=== PATIENT | male | born 1970 | race Caucasian/White ===

== ENCOUNTER 2020-03-06 09:14 | Emergency (ER) | payer OTHER ==
[~2020-03-06 09:14] MED LIST: ALDACTONE25 M1 PO; APRESOLINE100 MG PO; ASPIRIN EC81 MG PO; AUGMENTIN 500-1 EACH PO; AUGMENTIN875 MG PO; BACTRIM DS TAB1 EACH PO; BUMEX1 MG PO; CITALOPRAM 40MG40 MG PO; COREG25 MG PO; DAILY VITAMIN1 EACH PO; DRISDOL50000 UNIT PO; HYDRALAZINE25 MG PO; IMDUR 30MG TABL30 MG PO; ISOSORBIDE DINI30 MG PO; LEVEMIR DO100 UNITS/ SC; LEXAPRO 10MG TA10 MG PO; LIPITOR40 MG PO; LIPITOR80 MG PO; LISINOPRIL 20MG20 MG PO; LOPRESSOR25 MG PO; LOPRESSOR50 MG PO; NEURONTIN300 MG PO; NORCO 5-325 TA1 EACH PO; NORVASC 10MG TA10 MG PO; NORVASC5 MG PO; NOVOLOG DO100 UNIT/M SC; NOVOLOG100 UNIT/1 SC; PLAVIX75 MG PO; ROCEPHIN2 GM IV; SINEQUAN10 MG PO; ULTRAM50 MG PO; VIBRAMYCIN100 MG PO; VITAMIN B-121000 MCG PO; VITAMIN C500 M1 PO
[2020-03-06 10:49] LABS: BASOPHIL 1.3 % (0-2); EOSINOPHIL 1.8 % (0-5); HCT 33.3 % (42.0-52.0); HGB 10.9 g/dl (13.2-18.0); LYMPHOCYTE 16.8 % (15-48); MCH 32.3 pg (25.0-31.0); MCHC 32.7 g/dL (32.0-36.0); MCV 98.8 fL (78.0-100.0); MONOCYTE 7.1 % (0-12); MPV 8.9 fL (6.0-9.5); NRBC 0; PLT 276 K/uL (150-400); RBC 3.37 M/uL (4.70-6.00); WBC 7.2 K/uL (4.0-10.5)
[2020-03-06 11:16] LABS: BUN/CREAT RATIO (CALC) 3.8 RATIO; CREATININE 5.46 mg/dL (0.67-1.17); POTASSIUM 3.9 mmol/L (3.5-5.1)
[2020-03-06] MEDS ORDERED: FIORICET1 EACH PO (12:11)
== END 2020-03-06 12:20 | disposition home or self-care (01) ==
LOC: FER 09:14
PROVIDERS: Emergency Medicine
DX: R51.9 Headache, unspecified (principal); I12.0 Hypertensive chronic kidney disease with stage 5 chronic kidney disease or end stage renal disease; N18.6 End stage renal disease; Z99.2 Dependence on renal dialysis; Z95.1 Presence of aortocoronary bypass graft; Z89.612 Acquired absence of left leg above knee; Z89.611 Acquired absence of right leg above knee
CPT/HCPCS: 36415; 70450; 80048; 85025

== ENCOUNTER 2021-03-30 09:59 | Emergency (ER) | payer OTHER ==
[~2021-03-30 09:59] MED LIST changes: +FIORICET1 EACH PO; +HUMALOG 75100 UNIT/M SC; +ISOSORBIDE MONO30 MG PO; +LASIX80 MG PO; +PRINIVIL20 MG PO; +RENAGEL800 MG PO; +ZETIA10 MG PO
[2021-03-30 15:34] LABS: HGB 10.4 g/dl (13.2-18.0); LYMPHOCYTE 17.3 % (15-48); MCH 30.2 pg (25.0-31.0); MCHC 32.5 g/dL (32.0-36.0); NRBC 0; PLT 243 K/uL (150-400); RBC 3.44 M/uL (4.70-6.00); RDW 14.6 % (11.5-14.0); WBC 5.7 K/uL (4.0-10.5)
[2021-03-30 15:44] LABS: INR 1.17 (0.9-1.2); PROTHROMBIN TIME 14.3 SECONDS (11.8-13.4); PTT 29.7 SECONDS (24.4-34.7)
[2021-03-30 15:58] LABS: BUN/CREAT RATIO (CALC) 4.9 RATIO; CREATININE 4.08 mg/dL (0.67-1.17); POTASSIUM 4.1 mmol/L (3.5-5.1)
[2021-03-30 18:02] LABS: CORONAVIRUS 2019 SARS-COV-2 NEGATIVE (NEGATIVE); INFLUENZA A NAA NEGATIVE (NEGATIVE)
[2021-03-30] MEDS ORDERED: NEURONTIN100 M1 PO (19:18)
== END 2021-03-30 19:58 | disposition home or self-care (01) ==
LOC: FER 09:59
PROVIDERS: Nurse Practitioner Family
DX: R07.89 Other chest pain (principal); M54.12 Radiculopathy, cervical region; I25.2 Old myocardial infarction; I12.0 Hypertensive chronic kidney disease with stage 5 chronic kidney disease or end stage renal disease; E11.22 Type 2 diabetes mellitus with diabetic chronic kidney disease; N18.6 End stage renal disease; Z99.2 Dependence on renal dialysis; Z20.822 Contact with and (suspected) exposure to COVID-19
CPT/HCPCS: 36415; 71046; 73030; 80048; 84484; 85025; 85610; 85730; 93005; J1170; J2405; J3490; U0002

== ENCOUNTER 2021-08-18 11:04 | Emergency (ER) | payer OTHER ==
[~2021-08-18 11:04] MED LIST changes: +NEURONTIN100 M1 PO
[2021-08-18 12:46] LABS: BASOPHIL 1.3 % (0-2); HCT 39.8 % (42.0-52.0); HGB 12.9 g/dl (13.2-18.0); MCH 29.2 pg (25.0-31.0); MCHC 32.4 g/dL (32.0-36.0); MPV 9.7 fL (6.0-9.5); NEUTROPHIL 57.7 % (41-80); NRBC 0; PLT 230 K/uL (150-400); RBC 4.42 M/uL (4.70-6.00); WBC 6.1 K/uL (4.0-10.5)
[2021-08-18 13:18] LABS: ALBUMIN 3.7 g/dL (3.4-5.0); BILIRUBIN - TOTAL 0.3 mg/dL (0.2-1.0); BUN/CREAT RATIO (CALC) 7.3 RATIO; CREATININE 5.91 mg/dL (0.67-1.17); FT4 (FREE T4) 0.8 ng/dL (0.76-1.46); GLOBULIN (CALCULATION) 3.9 g/dL; MAGNESIUM 2.1 mg/dL (1.8-2.4); POTASSIUM 5.3 mmol/L (3.5-5.1); TOTAL PROTEIN 7.6 g/dL (6.4-8.2)
[2021-08-18 13:44] LABS: CORONAVIRUS 2019 SARS-COV-2 NEGATIVE (NEGATIVE); INFLUENZA A NAA NEGATIVE (NEGATIVE)
== END 2021-08-18 19:35 | disposition home or self-care (01) ==
LOC: FER 11:04
PROVIDERS: Emergency Medicine
DX: I13.2 Hypertensive heart and chronic kidney disease with heart failure and with stage 5 chronic kidney disease, or end stage renal disease (principal); E11.22 Type 2 diabetes mellitus with diabetic chronic kidney disease; N18.6 End stage renal disease; I50.9 Heart failure, unspecified; E11.65 Type 2 diabetes mellitus with hyperglycemia; Z20.822 Contact with and (suspected) exposure to COVID-19; Z99.2 Dependence on renal dialysis; Z88.8 Allergy status to other drugs, medicaments and biological substances
CPT/HCPCS: 36415; 71045; 80053; 83735; 84145; 84439; 84443; 84484; 85025; 93005; U0002